=== PATIENT | female | born 1930 | race Caucasian/White ===

== ENCOUNTER 2016-10-26 16:49 | Inpatient (IN) | payer MEDICARE, MEDICAID ==
[2016-10-26] MEDS ORDERED: ACETAMINOPHEN 325 MG SUPP PR ONE (16:59)
[2016-10-26] MEDS ORDERED: ACETAMINOPHEN 650 MG SUPP PR ONE (16:59)
[2016-10-26] MEDS ORDERED: NS 1,000 ML IV ONE (17:00)
[2016-10-26 17:12] LABS: ALLEN'S TEST PASS; BEb -1.7 (+/- 2); TCO2 23.1 MMOL/L (23-27)
[2016-10-26 17:13] LABS: ABG Draw Site Left Radial
[2016-10-26 17:21] LABS: AUTOMATED BASOPHIL 0.4 % (0-2); AUTOMATED EOSINOPHIL 0.2 % (0-5); AUTOMATED LYMPH 9.7 % (17-44); AUTOMATED MONOCYTE 9.7 % (3-10); MPV 9.6 fL (7.4-10.4)
--- NOTE | 2016-10-26 17:22 | EDPRACDOC ---
- General Information Chief Complaint: Dyspnea/Resp distress Stated Complaint: SHOB Time Seen by Provider: 10/26/16 16:56 Information Source: [employer] Mode Of Arrival: Ambulance Home Medications: Home Medications Escitalopram Oxalate [Lexapro] 10 mg PO HS 09/03/14 Methimazole [Tapazole] 5 mg PO HS 09/03/14 Simvastatin [Zocor] 40 mg PO HS 09/03/14 PEG-Electrolytes (Miralax) [Miralax] 17 grams PO DAILY 01/03/15 Losartan Potassium 50 mg PO QAM 03/18/15 Metoprolol Tartrate [Lopressor] 12.5 mg PO BID 04/27/15 Benzonatate 200 mg PO TID PRN 05/23/15 Albuterol Sulfate [Proventil, Ventolin] 2.5 mg NEB Q6H PRN 12/20/15 Aspirin [Ecotrin] 325 mg PO DAILY 12/20/15 B2/Vit A,C & E/Lut/Zeaxanth/Mn [Icaps Tablet] 1 tab PO DAILY 12/20/15 Furosemide [Lasix] 20 mg PO DAILY 12/20/15 Acetaminophen [Mapap] 1,000 mg PO Q6H PRN 12/23/15 Guaifenesin-Dextromethorphan [Robitussin Dm] 10 ml PO Q4H PRN 12/23/15 Mineral Oil/Petrolatum,White [Minerin Creme] 454 gm TP Q2H PRN 08/21/16 Prednisone [Deltasone, Orasone] 50 mg PO DAILY #5 tab 09/11/16 Allergies/Adverse Reactions: Allergies Allergy/AdvReac Type Severity Reaction Status Date / Time No Known Allergies Allergy Verified 09/11/16 09:16 - History of Present Illness Onset: few days HPI: PT HAS SEVERE DEMENTIA AND IS UNABLE TO GIVE ANY HX. PT INITIALLY SAW HER PCP WHO SENT HER HERE. PT HAS HAD SOB, COUGH, AND A FEVER. EMS GAVE PT 1 ALB NEB EN ROUTE. PT HAS BEEN ON LEVAQUIN SINCE 10/20. Shortness of Breath: Moderate Relevant History: Reports: None Cough: Reports: Non-productive Rhinorrhea: Reports: None Ear Symptoms: Reports: None SOB Worsens with: Reports: Exertion SOB Improves with: Reports: Nothing - Treatment Prior to ED Arrival Reported Medications/Treatment [facility] Meds/Treatments Given O2 via Cannula Medications [facility] HE[facility] SPECIAL[facility] (Medication/ albuterol tx en route Dose/Time) EMS Treatment ALS IV Yes ED Past Medical History - Patient Medical History Neurological History: Reports: Cerebrovascular Accident (2007), Dementia (severe ) Cardiac History: Reports: Atrial Fibrillation, Hypertension, Congestive Heart Failure (ECHO 08/2014: EF>55%. Diastolic dysfunction. RV sys pres 38mmHg), Hypercholesterolemia Respiratory History: Reports: Other (DVT) GI/ History: Reports: Urinary Tract Infection Musculoskeletal History: Reports: Arthritis (KNEES AND HANDS) Psychological History: Denies: Depression, Substance Use Disorder. Comment Only : Anxiety (POSSIBLE PER DAUGHTER) Systemic History: Reports: Diabetes, Hyperthyroidism Surgical History: Reports: Other (Pessary, bladder fallen. Dr. Gonzalez is her dust box worker.) - Family Medical History Reports: Cancer (adopted, but cancer is known to run in her biologic family.) - Social Medical History Smoking Status: Never smoker Social History: Denies: Substance Use Disorder ETOH: None Substance Abuse: None Lives In: [facility] EDM Review of Systems - Review of Systems ROS Unobtainable: Yes Review of systems cannot be obtained due to the patient's medical condition - Physical Exam Constitutional: Distress Oriented to: Not Oriented Last recorded Vital Signs: Last Vital Signs Temp 102.6 F H 10/26/16 17:15 Pulse 123 H 10/26/16 17:03 Resp 56 H 10/26/16 17:03 BP 165/108 H 10/26/16 17:03 Pulse Ox 85 L 10/26/16 17:03 Oxygen Pulse Oxygen Saturation 85 O2 Device Room Air Oxygen Flow Rate Fraction of Inspired Oxygen ( FIO2) - HEENT Head: Normal ( normocephalic) Eye Exam: Normal (PERRL, EOMI, Sclera white) Oropharynx: Membranes Dry ENT EAC: Normal TMJ: Normal Nose: No Symptoms Reported (septum midline) Neck: Normal (FROM, trachea at midline) - Respiratory/Cardiovascular Respiratory: Accessory Muscle Use, Rhonchi, Tachypnea, Wheezes Cardiovascular: Tachycardia, Irregular - GI Auscultation: Normal (NABS) Palpation: Normal (Soft,No rebound or guarding, non distended) Tenderness: Non tender Looney's Sign: Negative - Musculoskeletal Back: Normal Extremities: Normal - Integumentary Skin: Hot Lymphatics: Normal - Neurologic Memory Impaired: Unable to Test Motor Function: Normal Cranial Nerve: Unable to Test Mood Description: Anxious ED SOB MDM - Re-evaluation Re-evaluation 1 Re-evaluation Time: 18:05 (IMPROVED) - Results Result Diagrams: 10/26/16 17:03 10/26/16 17:03 Results: Puncture Site Left radial 10/26/16 17:03 pH 7.420 pH UNITS (7.35-7.45) 10/26/16 17:03 pCO2 34.0 mmHg (35-45) L 10/26/16 17:03 pO2 60.0 mmHg (80-100) L 10/26/16 17:03 HCO3 22.1 MMOL/L (22-26) 10/26/16 17:03 Total CO2 23.1 MMOL/L (23-27) 10/26/16 17:03 Base Excess -1.7 (+/- 2) 10/26/16 17:03 FiO2 % 21% 10/26/16 17:03 Specimen Drawn By Roude 10/26/16 17:03 Lab Results 10/26/16 17:03 Puncture Site Left radial pH 7.420 pCO2 34.0 L pO2 60.0 L HCO3 22.1 Total CO2 23.1 Base Excess -1.7 FiO2 % 21% Specimen Drawn By Roude - EKG EKG #1 EKG Time: 17:08 -: Yes EKG interpreted by me Rate: bpm: 129 [place]: Normal Rhythm: Afib Block: None Hypertrophy: None ST: Normal Comparison: 09/11/16 - Diagnostic Imaging Chest Image interpreted by: Radiologist Diagnostic Imaging Comments: Patchy infiltrate right base region. Mild scarring left base. Lungs elsewhere clear. Followup PA and lateral chest radiographs recommended in 3-4 weeks following trial of antibiotic therapy to ensure resolution and exclude underlying malignancy. - Departure Yes I personally saw and evaluated the patient. Disposition: Admit IP To This Hospital Condition: Stable Final Diagnosis: RLL pneumonia, Fever, Acute respiratory failure with hypoxia, Lactic acidosis Education/Counseling Given To: Patient Education/Counseling Given Regarding: Diagnosis, Treatment Decision to Admit Time: 18:10 Decision to admit date: 10/26/16 Decision to admit: from ED - Physician Consulted Hospitalist Provider Called: Radha Chaves
[2016-10-26 17:29] LABS: PARTIAL THROMB. TIME 24.3 SEC (22-35); PT-INR 1.2
[2016-10-26 17:31] LABS: BLOOD UREA NITROGEN 17 MG/DL (7-17); CALCIUM 9.2 MG/DL (8.4-10.2); CALCULATED OSMOLALITY 282 MOs/Kg (270-290); CHLORIDE 103 mEq/L (98-107); GLUCOSE 144 MG/DL (70-99); SODIUM LEVEL 144 mEq/L (137-146); TOTAL PROTEIN 7.6 G/DL (6.3-8.2)
[2016-10-26 17:47] LABS: LEUKOCYTES/URINE NEG (NEGATIVE); NITRITE/URINE NEG (NEGATIVE); URINE OCCULT BLOOD NEG (NEG/TRACE); WBC/URINE 0-2 (0-5)
--- NOTE | 2016-10-26 18:03 | DIRPT ---
CLINICAL DATA: Shortness of Breath ; fever EXAM: PORTABLE CHEST 1 VIEW COMPARISON: September 11, 2016 FINDINGS: There is patchy infiltrate in the right base. There is mild scarring in the left base. Lungs elsewhere clear. Heart is borderline enlarged with pulmonary vascularity within normal limits. Pacemaker lead is attached to the right ventricle. No adenopathy. IMPRESSION: Patchy infiltrate right base region. Mild scarring left base. Lungs elsewhere clear. Followup PA and lateral chest radiographs recommended in 3-4 weeks following trial of antibiotic therapy to ensure resolution and exclude underlying malignancy. Electronically Signed By: Jasvir Kebede III, M.D. On: 10/26/2016 18:00
[2016-10-26] MEDS ORDERED: Levofloxacin 750 mg/150 ml D5W 750 MG/150 ML RTU IV ONE (18:05)
[2016-10-26] MEDS ORDERED: CEFTRIAXONE 1 GM in D5W 100 ML IV ONE (18:08)
[2016-10-26] MEDS ORDERED: AZITHROMYCIN 250 MG TAB PO ONE (18:08)
[2016-10-26] MEDS ORDERED: SODIUM CHLORIDE 0.9% 3 ML FLUSH FLUSH PRN (18:32)
[2016-10-26] MEDS ORDERED: ONDANSETRON HCL 4 MG/2 ML VIAL IV PRN (18:32)
[2016-10-26] MEDS ORDERED: MAGNESIUM HYDROXIDE 30 ML BOTTLE PO PRN (18:32)
[2016-10-26] MEDS ORDERED: ACETAMINOPHEN 650 MG SUPP PR PRN (18:32)
[2016-10-26] MEDS ORDERED: Aluminum;Magnesium;Simethicone 30 ML UDC PO PRN (18:32)
[2016-10-26] MEDS ORDERED: ACETAMINOPHEN 325 MG/TAB TABLET PO PRN (18:32)
--- NOTE | 2016-10-26 18:46 | HISTPHYS ---
- Chief Complaint Patient is unable to provide any history whatsoever and is unaccompanied. - History of Present Illness 86-year-old female seen in Dr. NANCE office last week diagnosed with a acute infectious syndrome and started on levofloxacin. She will complete 7 days of levofloxacin tomorrow. Since that time she has developed diarrhea. She has had worsening respiratory status. She was seen in follow-up with Dr. NANCE is office today and found to be tachycardic, tachypneic and febrile and sent into the emergency department. In the emergency department after having received a nebulizer from EMS her O2 sat was 85%. X-ray revealed severe pneumonia. Patient has symptoms of cough and congestion. Given her physical exam laboratory findings and obvious symptoms the patient will be admitted into the hospital for treatment of severe sepsis due to pneumonia. Please note the patient influenza test was negative in the emergency department Spoke at length the patient's daughter who I personally called. She then reports that her mother is a do not resuscitate. She states that lately she has been unable to feed herself. She cannot dress herself. She uses 0 wheelchair to to get around. She has a pacemaker in place. - Medical History Cardiac History: Reports: Atrial Fibrillation, Hypertension, Congestive Heart Failure (ECHO 08/2014: EF>55%. Diastolic dysfunction. RV sys pres 38mmHg), Hypercholesterolemia, Pacemaker, Other (h/o tachy sree) Respiratory History: Reports: Other (DVT) GI/ History: Reports: Urinary Tract Infection, PMH GI Yes/No Other (CKD stage 3,) Musculoskeletal History: Reports: Arthritis (KNEES AND HANDS) Systemic History: Reports: Diabetes, Hyperthyroidism Neurological History: Reports: Cerebrovascular Accident (2007), Dementia ( severe LAzheimers), Other (h/o IC bleed d/t antioag) Psychological History: Reports: Depression. Denies: Substance Use Disorder. Comment Only: Anxiety (POSSIBLE PER DAUGHTER) - Surgical History Reports: Other (Pessary, bladder fallen. Dr. Gonzalez is her chief technician.) - Medictions/Allergies Allergies No Known Allergies Allergy (Verified 09/11/16 09:16) Current Medication List: Reviewed Home Medications Escitalopram Oxalate [Lexapro] 10 mg PO HS 09/03/14 Methimazole [Tapazole] 5 mg PO HS 09/03/14 Simvastatin [Zocor] 40 mg PO HS 09/03/14 PEG-Electrolytes (Miralax) [Miralax] 17 grams PO DAILY 01/03/15 Losartan Potassium 50 mg PO QAM 03/18/15 Metoprolol Tartrate [Lopressor] 12.5 mg PO BID 04/27/15 Aspirin [Ecotrin] 325 mg PO DAILY 12/20/15 B2/Vit A,C & E/Lut/Zeaxanth/Mn [Icaps Tablet] 1 tab PO DAILY 12/20/15 Furosemide [Lasix] 20 mg PO DAILY 12/20/15 Levofloxacin [Levaquin] 500 mg PO .DAILY X 10D 10/26/16 - Family History Reports: Cancer (adopted, but cancer is known to run in her biologic family.) - Social History Travel Outside of [place] in the Last 3 Months?: No Lives: in Assisted Living Smoking Status: Never smoker Social History: Denies: Alcohol Use, Substance Use Disorder Patient [facility]. She does no longer recognize her daughter but recognizes that she is somebody who she knows. She is no longer able to dress herself and in the past several weeks has been unable to feed herself. She uses a wheelchair to help with her gait. There is a question about hallucinations at night. - Review of Systems Yes Review of systems cannot be obtained due to the patient's medical condition - Physical Exam Vital Signs: Initial Vitals Pulse Rate 129 H 10/26/16 16:59 Respiratory Rate 56 H 10/26/16 16:59 Blood Pressure 187/110 H 10/26/16 16:59 Constitutional: Distress (Moderate). negative: Well nourished, Well appearing Oriented to: Person - HEENT Head: Normal (normocephalic, atraumatic.), Other (No cervical lymphadenopathy. No supraclavicular lymphadenopathy. Neck: No palpable mass, supple , trachea midline.) Eye: Normal (pupils equal, reactive to light, and round; EOMI, Sclera white) Oropharynx: Normal (Pharynx: Moist without exudate,Gums-no swelling, No oropharyngeal lesions or erythema, Mucous membranes are dry.) Nose: Congestion, Discharge Respiratory: Accessory Muscle Use, Diminished, Rales, Rhonchi, Tachypnea Cardiovascular: Tachycardia - GI Auscultation: Normal (normal active sounds) Palpation: Normal (Soft,non distended,nontender. No hepatosplenomegaly.) Tenderness: Non tender (No rebound or guarding) - Musculoskeletal Back: Normal (Non-Tender) Extremities: Normal (Normal tone, DP pulses 2+ bilaterally, No cyanosis or edema bilaterally, FROM bilaterally.) - Integumentary Skin: Normal (Clean, dry, and intact. No rashes. No lesions.) Lymphatics: Normal (No cervical lymphadenopathy. No supraclavicular lymphadenopathy.) - Neurologic Memory Impaired: Short-term, Long-term Motor Function: Unable to Test Cranial Nerve: Unable to Test Cerebellar: Unable to Test Mood Description: Agitated Thought: Rambling Conversation - Focused CV Perfusion Exam Date exam occurred: 10/26/16 Time of Exam: 19:17 Vital Signs: Last Vital Signs Temp 102.6 F H 10/26/16 17:15 Pulse 121 H 10/26/16 17:48 Resp 36 H 10/26/16 17:48 BP 159/87 10/26/16 17:48 Pulse Ox 94 10/26/16 17:48 Respiratory: Chest non-tender, Accessory muscle use, Rales, Rhonchi. negative: No accessory muscle use Cardiovascular/Chest: Tachycardia Peripheral pulses: Full: Radial (R), Radial (L), Dorsalis pedis (R), Dorsalis pedis (L) Skin Color: Normal Skin Turgor: >3 Seconds - Lab Results Laboratory Results - last 24 hr 10/26/16 10/26/16 10/26/16 17:03 17:03 17:03 WBC 10.3 RBC 4.33 Hgb 13.6 Hct 41.3 MCV 95 MCH 31.3 MCHC 32.8 L RDW 15.6 H Plt Count 134 MPV 9.6 Neut % (Auto) 80.0 H Lymph % (Auto) 9.7 L [place] % (Auto) 9.7 Eos % (Auto) 0.2 Baso % (Auto) 0.4 Absolute Neuts (auto) 8.24 H Absolute Lymphs (auto) 0.93 PT 12.6 H INR 1.2 APTT 24.3 Puncture Site pH pCO2 pO2 HCO3 Total CO2 Base Excess FiO2 % Specimen Drawn By Sodium 144 Potassium 4.2 Chloride 103 Carbon Dioxide 24 Anion Gap 21 H BUN 17 Creatinine 1.00 Estimated GFR (MDRD) 52 L Glucose 144 H Calculated Osmolality 282 Lactic Acid Calcium 9.2 Total Bilirubin 0.8 AST 34 ALT 33 Alkaline Phosphatase 88 Troponin I < 0.01 Total Protein 7.6 Albumin 4.5 Urine Color Urine Clarity Urine pH Ur Specific [place] Urine Protein Urine Glucose (UA) Urine Ketones Urine Occult Blood Urine Nitrite Urine Bilirubin Urine Urobilinogen Ur Leukocyte Esterase Urine RBC Urine WBC Ur Epithelial Cells Hyaline Casts Urine Mucus 10/26/16 10/26/16 10/26/16 17:03 17:03 17:25 WBC RBC Hgb Hct MCV MCH MCHC RDW Plt Count MPV Neut % (Auto) Lymph % (Auto) [place] % (Auto) Eos % (Auto) Baso % (Auto) Absolute Neuts (auto) Absolute Lymphs (auto) PT INR APTT Puncture Site Left radial pH 7.420 pCO2 34.0 L pO2 60.0 L HCO3 22.1 Total CO2 23.1 Base Excess -1.7 FiO2 % 21% Specimen Drawn By Roude Sodium Potassium Chloride Carbon Dioxide Anion Gap BUN Creatinine Estimated GFR (MDRD) Glucose Calculated Osmolality Lactic Acid 3.0 H Calcium Total Bilirubin AST ALT Alkaline Phosphatase Troponin I Total Protein Albumin Urine Color Yellow Urine Clarity Clear Urine pH 6.0 Ur Specific [place] 1.010 Urine Protein Neg Urine Glucose (UA) Neg Urine Ketones Neg Urine Occult Blood Neg Urine Nitrite Neg Urine Bilirubin Neg Urine Urobilinogen <2.0 Ur Leukocyte Esterase Neg Urine RBC 5-10 H Urine WBC 0-2 Ur Epithelial Cells Occ Hyaline Casts 2-5 H Urine Mucus Occ - Diagnostic Findings PORTABLE CHEST 1 VIEW COMPARISON: September 11, 2016 FINDINGS: There is patchy infiltrate in the right base. There is mild scarring in the left base. Lungs elsewhere clear. Heart is borderline enlarged with pulmonary vascularity within normal limits. Pacemaker lead is attached to the right ventricle. No adenopathy. IMPRESSION: Patchy infiltrate right base region. Mild scarring left base. Lungs elsewhere clear. Followup PA and lateral chest radiographs recommended in 3-4 weeks following trial of antibiotic therapy to ensure resolution and exclude underlying malignancy. Electronically Signed By: Jasvir Kebede III, M.D. On: 10/26/2016 18:00 - Assessment (1) Severe sepsis A41.9 - SEPSIS, UNSPECIFIED ORGANISM; R65.20 - SEVERE SEPSIS WITHOUT SEPTIC SHOCK Acute Present on Admission: Yes Severe sepsis characterized by fever, tachycardia, tachypnea, as well as source of infection being pneumonia. Patient with elevated lactic acid greater than 3. Patient consists signs and symptoms consistent with severe sepsis she has received treatment in the emergency department with IV fluids will continue IV fluids but given her difficult pulmonary situation will give her fluids at 80 milliliters/hour for 2 L gently and monitor her response to treatment. She is currently not hypotensive. (2) Acute respiratory failure with hypoxia J96.01 - ACUTE RESPIRATORY FAILURE WITH HYPOXIA Acute Present on Admission: Yes Patient to receive oxygen supplementation to keep her O2 sats greater than 92%. Currently she is requiring nasal cannula oxygen. (3) RLL pneumonia J18.1 - LOBAR PNEUMONIA, UNSPECIFIED ORGANISM Acute Present on Admission: Yes Qualifiers: Pneumonia type: aspiration pneumonia Aspiration pneumonia type: unspecified Qualified Code(s): J69.0 - Pneumonitis due to inhalation of food and vomit Patient likely with aspiration pneumonia given her coughing and significant swallowing dysfunction noted in the emergency department. She will be seen by speech therapy for a swallow evaluation in the a.m.. (4) Alzheimer's dementia without behavioral disturbance G30.9 - ALZHEIMER'S DISEASE, UNSPECIFIED; F02.80 - DEMENTIA IN OTH DISEASES CLASSD ELSWHR W/O BEHAVRL DISTURB Acute Present on Admission: Yes Patient with history of else Heimer is dementia as noted above she no longer recognizes her daughter is unable to dress herself and recently has been unable to feed herself. Will continue supportive care. Continue with reorientation as necessary. (5) Fever R50.9 - FEVER, UNSPECIFIED Acute Qualifiers: Fever type: other Qualified Code(s): R50.81 - Fever presenting with conditions classified elsewhere Patient's fever likely due to pneumonia. Will provide antipyretics and treat underlying cause. (6) Lactic acidosis E87.2 - ACIDOSIS Acute Present on Admission: Yes Tissue perfusion at risk will repeat lactic acid. (7) Dementia with psychosis F03.91 - UNSPECIFIED DEMENTIA WITH BEHAVIORAL DISTURBANCE Chronic Patient with a recent history of hallucinations in late September. Likely related to her acute illness. Will monitor closely. (8) Hyperthyroidism E05.90 - THYROTOXICOSIS, UNSP WITHOUT THYROTOXIC CRISIS OR STORM Chronic Continue methimazole as able. (9) Do not resuscitate status Z66 - DO NOT RESUSCITATE Chronic Present on Admission: Yes - Plan Admit, hydrate IV, oxygen supplementation, IV antibiotics and follow temperature curve and exam. Case Care Discussed with: Patient, Family, Nursing Staff Total Time: 85 minutes Critical Care: Yes Couseling Time (>50% in counseling/coordination): No
[2016-10-26 18:52] LABS: FREE T3 3.26 pg/mL (2.77-5.27); FREE T4 0.88 ng/dL (0.78-2.19)
[2016-10-26 19:06] LABS: hTSH 2.39 uIU/mL (0.5-4.67)
[2016-10-26] MEDS: NS/KCl 20 mEq 1,000 ML IV SCH (19:51)
[2016-10-26] MEDS: ENOXAPARIN 40 MG/0.4 ML PFS SQ SCH (21:54)
[2016-10-26] MEDS: ESCITALOPRAM OXALATE 10 MG TAB PO SCH ×2 (21:55→22:01)
[2016-10-26] MEDS: METOPROLOL TARTRATE 25 MG TAB PO SCH ×2 (21:56→22:00)
[2016-10-26] MEDS: SIMVASTATIN 40 MG TAB PO SCH ×2 (21:58→22:01)
[2016-10-26] MEDS: METHIMAZOLE 5 MG TAB PO SCH ×2 (21:58→22:01)
[2016-10-26] MEDS ORDERED: Vaccine Screening Complete SCH (23:00)
[2016-10-27 01:27] LABS: AUTOMATED BASOPHIL 0.2 % (0-2); AUTOMATED LYMPH 6.7 % (17-44); AUTOMATED MONOCYTE 11.5 % (3-10); AUTOMATED NEUTROPHIL 81.6 % (45-76); MPV 9.5 fL (7.4-10.4)
[2016-10-27] MEDS: SODIUM CHLORIDE 0.9% 3 ML FLUSH FLUSH SCH ×3 (05:58→23:01)
[2016-10-27] MEDS: NS/KCl 20 mEq 1,000 ML IV SCH ×3 (05:59→20:37)
[2016-10-27] MEDS ORDERED: FLU VACCINE (Afluria) 0.5 ML DOSE IM ONE (08:00)
[2016-10-27] MEDS ORDERED: PNEUMOCOCCAL 0.5 ML VIAL IM ONE (08:00)
[2016-10-27 08:12] LABS: ALLEN'S TEST PASS
[2016-10-27 08:13] LABS: ABG Draw Site Left Radial; BEb 2.3 (+/- 2); TCO2 27.7 MMOL/L (23-27)
[2016-10-27] MEDS ORDERED: [UNRECOGNIZED DRUG - OTHER] PO SCH (09:00)
[2016-10-27] MEDS: FUROSEMIDE 20 MG TAB PO SCH (11:38)
[2016-10-27] MEDS: METOPROLOL TARTRATE 25 MG TAB PO SCH ×2 (11:38→20:35)
[2016-10-27] MEDS: VITAMINS, MULTIPLE CAP PO SCH (11:38)
[2016-10-27] MEDS: PEG-ELECTROLYTE 17 GM PACK PO SCH (11:39)
[2016-10-27] MEDS: Aspirin (Orange Enteric Coated) 325 mg tab PO SCH (11:39)
[2016-10-27] MEDS: LOSARTAN POTASSIUM 50 MG TAB PO SCH (11:39)
--- NOTE | 2016-10-27 15:11 | GENMEDPROG ---
Chief Complaint: sepsis, resp failure, pneumonia, TME, CHF, hypokalemia, dementia Currently: Reports: Cough, Wheezing, JUAREZ, SOB, Tobacco Use/Hx, Nausea and Vomiting, Abdominal Pain, Fever/Chills, Lisandra PT/OT, Ambulating DVT Prophylaxis: Yes - Physical Examination Vital Signs and I&O: Last Vital Signs Temp 98.1 F 10/27/16 12:00 Pulse 84 10/27/16 12:00 Resp 20 10/27/16 12:00 BP 140/86 10/27/16 12:00 Pulse Ox 87 L 10/27/16 12:00 Oxygen Pulse Oxygen Saturation 87 O2 Device Nasal Cannula Oxygen Flow Rate 2 Fraction of Inspired Oxygen ( 2 FIO2) Intake & Output 10/24/16 10/25/16 10/26/16 10/27/16 23:59 23:59 23:59 23:59 Intake Total 1250 913 Balance 1250 913 Patient's weight 66.723 kg 64.042 kg General: Alert, Oriented x3, Cooperative, No acute distress HEENT: PERRLA, EOMI, Anicteric Sclera, Mucous membr. moist/pink, Pallor Neck: Non-tender, Full range of motion, Normal Trachea alignment, Normal inspection, No Masses palpable, No Thyromegaly palpable Lymphatics: Normal (No cervical lymphadenopathy. No supraclavicular lymphadenopathy.), Cervical Adenopathy Respiratory: Accessory Muscle Use, Diminished, Rales, Rhonchi, Tachypnea Cardiovascular: Regular rate and rhythm, Normal S1, No Gallops,Rubs/Murmurs, Normal S2 GI: Normal bowel sounds, Soft, Non tender, No hepatospenomegaly Extremities/Musculoskeletal: Normal pulses, DJD, FROM, Motor 5/5 throughout. negative: Edema, Clubbing, Cyanosis Skin: Warm,Dry and Intact, No rashes, No breakdown, No significant lesion Neurological: Normal speech, Strength at 5/5 X4 ext, Normal tone, Cranial nerves 3-12 NL, Reflexes 2+ Psych/Mental Status: Appropriate, Normal Affect, Cooperative Lab/DI/Studies Reviewed: Laboratory Tests 10/27/16 10/27/16 10/27/16 01:05 01:05 08:05 WBC 11.6 H Hgb 11.6 L D Hct 35.2 L Plt Count 106 L pH 7.440 pCO2 39.0 pO2 96.0 HCO3 26.5 H Total CO2 27.7 H Base Excess 2.3 H FiO2 % 2lpm nc Troponin I 0.02 - Assessment (1) Severe sepsis Acute A41.9 - SEPSIS, UNSPECIFIED ORGANISM; R65.20 - SEVERE SEPSIS WITHOUT SEPTIC SHOCK Comment/Plan: Severe sepsis characterized by fever, tachycardia, tachypnea, as well as source of infection being pneumonia. Patient with elevated lactic acid greater than 3. Patient consists signs and symptoms consistent with severe sepsis she has received treatment in the emergency department with IV fluids will continue IV fluids but given her difficult pulmonary situation will give her fluids at 80 milliliters/hour for 2 L gently and monitor her response to treatment. She is currently not hypotensive. (2) Acute respiratory failure with hypoxia Acute J96.01 - ACUTE RESPIRATORY FAILURE WITH HYPOXIA Comment/Plan: Patient to receive oxygen supplementation to keep her O2 sats greater than 92%. Currently she is requiring nasal cannula oxygen. (3) RLL pneumonia Acute J18.1 - LOBAR PNEUMONIA, UNSPECIFIED ORGANISM Qualifiers: Pneumonia type: aspiration pneumonia Aspiration pneumonia type: unspecified Qualified Code(s): J69.0 - Pneumonitis due to inhalation of food and vomit Comment/Plan: Patient likely with aspiration pneumonia given her coughing and significant swallowing dysfunction noted in the emergency department. She will be seen by speech therapy for a swallow evaluation in the a.m.. (4) Lactic acidosis Acute E87.2 - ACIDOSIS Comment/Plan: Tissue perfusion at risk will repeat lactic acid. (5) Atrial fibrillation with RVR Acute I48.91 - UNSPECIFIED ATRIAL FIBRILLATION Comment/Plan: She has sick sinus syndrome with symptomatic bradycardia with syncope prolonged junctional rhythm on low-dose beta-filiberto and subsequent rapid atrial fibrillation drug withdrawal. She is managed with IV Cardizem low-dose she has converted the family has matched they have agreed to have a permanent pacemaker put in as a side from her dementia she otherwise has a good quality of life and no life- threatening illness. Signed consent yesterday the some will go to [place] today and they agreed to suspend her DNR during pacemaker insertion after which go back on a beta filiberto Lopressor 25 mg b.i.d.. She has not been anticoagulated because of concerns of fall and I can address this in the office electively afterwards I think of we made a decision to pacer its pressor I would put her on anticoagulant therapy of there is no falls when seen in follow up. (6) Thrombocytopenia Acute D69.6 - THROMBOCYTOPENIA, UNSPECIFIED Comment/Plan: Platelet count stable continue to monitor. (7) Diastolic CHF, chronic Chronic I50.32 - CHRONIC DIASTOLIC (CONGESTIVE) HEART FAILURE Comment/Plan: The patient with a long history of chronic systolic CONGESTIVE HEART FAILURE currently well compensated will continue to monitor. Patient now has pacemaker. (8) Hypertension Chronic I10 - ESSENTIAL (PRIMARY) HYPERTENSION Qualifiers: Hypertension type: essential hypertension Qualified Code(s): I10 - Essential (primary) hypertension Comment/Plan: Continue blood pressure medications; blood pressure is currently stable. (9) Hyperthyroidism Chronic E05.90 - THYROTOXICOSIS, UNSP WITHOUT THYROTOXIC CRISIS OR STORM Comment/Plan: Continue methimazole as able.
[2016-10-27] MEDS: CEFTRIAXONE 1 GM in D5W 100 ML IV SCH (16:52)
[2016-10-27] MEDS: ENOXAPARIN 40 MG/0.4 ML PFS SQ SCH (16:53)
[2016-10-27] MEDS: AZITHROMYCIN 500 MG in D5W 250 ML IV SCH (18:28)
[2016-10-27] MEDS: METHIMAZOLE 5 MG TAB PO SCH (20:35)
[2016-10-27] MEDS: SIMVASTATIN 40 MG TAB PO SCH (20:35)
[2016-10-27] MEDS: ESCITALOPRAM OXALATE 10 MG TAB PO SCH (20:35)
[2016-10-28] MEDS: NS/KCl 20 mEq 1,000 ML IV SCH ×2 (05:11→08:56)
[2016-10-28] MEDS: LOSARTAN POTASSIUM 50 MG TAB PO SCH (07:30)
[2016-10-28] MEDS: BENZONATATE 100 MG PERLES PO PRN (07:30)
[2016-10-28] MEDS: Aspirin (Orange Enteric Coated) 325 mg tab PO SCH (07:31)
[2016-10-28] MEDS: FUROSEMIDE 20 MG TAB PO SCH (07:31)
[2016-10-28] MEDS: METOPROLOL TARTRATE 25 MG TAB PO SCH ×2 (07:32→20:29)
[2016-10-28] MEDS: PEG-ELECTROLYTE 17 GM PACK PO SCH (08:56)
[2016-10-28] MEDS ORDERED: VARIBAR THIN 40% BARIUM 250 ML ONE (11:08)
[2016-10-28] MEDS ORDERED: VARIBAR NECTAR 40% BARIUM 240 ML ONE (11:08)
[2016-10-28] MEDS: VITAMINS, MULTIPLE CAP PO SCH (11:47)
--- NOTE | 2016-10-28 15:36 | GENMEDPROG ---
Chief Complaint: Mild sepsis respiratory failure right base pneumonia Subjective Note: Patient still has a cough. She denies any chest pain any lower extremity edema Currently: Reports: Cough (Nonproductive), Wheezing, JUAREZ, SOB, Tobacco Use/Hx DVT Prophylaxis: Yes - Physical Examination Vital Signs and I&O: Last Vital Signs Temp 98.4 F 10/28/16 12:13 Pulse 95 10/28/16 12:13 Resp 18 10/28/16 12:13 BP 141/97 10/28/16 12:13 Pulse Ox 99 10/28/16 12:13 Oxygen Pulse Oxygen Saturation 99 O2 Device Nasal Cannula Oxygen Flow Rate 2 Fraction of Inspired Oxygen ( 2 FIO2) Intake & Output 10/25/16 10/26/16 10/27/16 10/28/16 23:59 23:59 23:59 23:59 Intake Total 1250 1935 1174 Balance 1250 1935 1174 Patient's weight 66.723 kg 64.042 kg 64.365 kg General: Alert, Cooperative, No acute distress HEENT: Anicteric Sclera, Mucous membr. moist/pink, Pallor Neck: Non-tender, Normal Trachea alignment, Normal inspection Lymphatics: Normal (No cervical lymphadenopathy. No supraclavicular lymphadenopathy.) Respiratory: Accessory Muscle Use, Diminished, Rales, Rhonchi Cardiovascular: Regular rate and rhythm, Normal S1, No Gallops,Rubs/Murmurs, Normal S2. negative: LE Edema GI: Normal bowel sounds, Soft, Non tender Extremities/Musculoskeletal: Normal pulses, DJD. negative: Edema, Clubbing, Cyanosis Skin: Warm,Dry and Intact, No rashes Neurological: Normal speech, Normal tone Psych/Mental Status: Normal Affect, Cooperative, Confused (Pleasantly confused) Lab/DI/Studies Reviewed: 10/27/16 01:05 10/26/16 17:03 - Assessment (1) Severe sepsis Acute A41.9 - SEPSIS, UNSPECIFIED ORGANISM; R65.20 - SEVERE SEPSIS WITHOUT SEPTIC SHOCK Comment/Plan: Tachypnea has improved. Still need to cautiously manage fluid status. (2) Acute respiratory failure with hypoxia Acute J96.01 - ACUTE RESPIRATORY FAILURE WITH HYPOXIA Comment/Plan: Continue oxygen (3) RLL pneumonia Acute J18.1 - LOBAR PNEUMONIA, UNSPECIFIED ORGANISM Qualifiers: Pneumonia type: aspiration pneumonia Aspiration pneumonia type: unspecified Qualified Code(s): J69.0 - Pneumonitis due to inhalation of food and vomit Comment/Plan: Is being seen by speech therapy. She is on pureed solids and nectar thick liquids. Aspiration precautions need to continue. (4) Alzheimer's dementia without behavioral disturbance Acute G30.9 - ALZHEIMER'S DISEASE, UNSPECIFIED; F02.80 - DEMENTIA IN OTH DISEASES CLASSD ELSWHR W/O BEHAVRL DISTURB Qualifiers: Alzheimer's disease onset: late-onset Qualified Code(s): G30.1 - Alzheimer' s disease with late onset; F02.80 - Dementia in other diseases classified elsewhere without behavioral disturbance Comment/Plan: Continue supportive care. Anticipate discharge back to [facility] (5) Atrial fibrillation with RVR Acute I48.91 - UNSPECIFIED ATRIAL FIBRILLATION Comment/Plan: Currently on outpatient medications. She has a pacemaker. - Plan Continue IV antibiotics Case Care Discussed with: Patient, Nursing Staff Total Time: 35 minutes Critical Care: No Code: 68647 (12+)
[2016-10-28] MEDS: CEFTRIAXONE 1 GM in D5W 100 ML IV SCH (16:37)
[2016-10-28] MEDS: ENOXAPARIN 40 MG/0.4 ML PFS SQ SCH (18:31)
[2016-10-28] MEDS: SODIUM CHLORIDE 0.9% 3 ML FLUSH FLUSH SCH (18:31)
[2016-10-28] MEDS: AZITHROMYCIN 500 MG in D5W 250 ML IV SCH (18:31)
[2016-10-28] MEDS: TUSSIONEX 5 ML ORAL SYRINGE PO PRN (18:47)
[2016-10-28] MEDS ORDERED: Albuterol/Ipratropium Neb 3 ML NEB NEB PRN (18:59)
[2016-10-28] MEDS: Albuterol/Ipratropium Neb 3 ML NEB NEB SCH (19:12)
[2016-10-28] MEDS: METHIMAZOLE 5 MG TAB PO SCH (20:28)
[2016-10-28] MEDS: ESCITALOPRAM OXALATE 10 MG TAB PO SCH (20:28)
[2016-10-28] MEDS: SIMVASTATIN 40 MG TAB PO SCH (20:29)
[2016-10-29] MEDS: Albuterol/Ipratropium Neb 3 ML NEB NEB SCH ×4 (01:36→20:11)
[2016-10-29] MEDS: NS/KCl 20 mEq 1,000 ML IV SCH ×3 (01:48→16:40)
[2016-10-29] MEDS: SODIUM CHLORIDE 0.9% 3 ML FLUSH FLUSH SCH ×2 (05:15→16:40)
[2016-10-29] MEDS: BENZONATATE 100 MG PERLES PO PRN (06:03)
[2016-10-29] MEDS: LOSARTAN POTASSIUM 50 MG TAB PO SCH (08:23)
[2016-10-29] MEDS: VITAMINS, MULTIPLE CAP PO SCH (08:23)
[2016-10-29] MEDS: Aspirin (Orange Enteric Coated) 325 mg tab PO SCH (08:23)
[2016-10-29] MEDS: METOPROLOL TARTRATE 25 MG TAB PO SCH ×2 (08:23→20:37)
[2016-10-29] MEDS: ENSURE PUDDING CHOCOLATE 5 OZ PO SCH ×2 (08:24→13:46)
[2016-10-29] MEDS: PEG-ELECTROLYTE 17 GM PACK PO SCH (08:24)
[2016-10-29] MEDS: FUROSEMIDE 20 MG TAB PO SCH (08:24)
--- NOTE | 2016-10-29 12:19 | GENMEDPROG ---
Chief Complaint: Sepsis right basilar pneumonia Subjective Note: Patient is too somnolent today to get much review of systems. She does talk briefly but does not answer specific questions Current Medication List: Reviewed Currently: Reports: Cough (Did have coughing spasms yesterday), Tobacco Use/Hx, Other (Has not eaten breakfast). Denies: Nausea and Vomiting, Fever/Chills DVT Prophylaxis: Yes - Physical Examination Vital Signs and I&O: Last Vital Signs Temp 98.2 F 10/29/16 11:54 Pulse 105 10/29/16 11:54 Resp 20 10/29/16 11:54 BP 162/92 10/29/16 11:54 Pulse Ox 96 10/29/16 11:54 Oxygen Pulse Oxygen Saturation 96 O2 Device Nasal Cannula Oxygen Flow Rate 2 Fraction of Inspired Oxygen ( 2 FIO2) Intake & Output 10/26/16 10/27/16 10/28/16 10/29/16 23:59 23:59 23:59 23:59 Intake Total 1250 1934 2098 108 Balance 1249 1934 2098 108 Patient's weight 66.723 kg 64.042 kg 64.365 kg 64.892 kg General: No acute distress, Other (Sleeping and arouses very slowly) HEENT: Anicteric Sclera, Mucous membr. moist/pink, Pallor Neck: Non-tender, Normal Trachea alignment, Normal inspection Lymphatics: Normal (No cervical lymphadenopathy. No supraclavicular lymphadenopathy.) Respiratory: Diminished (Faint congestion heard) Cardiovascular: Regular rate and rhythm, Normal S1, No Gallops,Rubs/Murmurs, Normal S2. negative: LE Edema GI: Normal bowel sounds, Soft, Non tender Extremities/Musculoskeletal: Normal pulses, DJD. negative: Edema, Clubbing, Cyanosis Skin: Warm,Dry and Intact Neurological: Somnolent Psych/Mental Status: Confused (Is confused but not combative when she wakes up.) Lab/DI/Studies Reviewed: Intake & Output 10/26/16 10/27/16 10/28/16 10/29/16 23:59 23:59 23:59 23:59 Intake Total 1251934 108 Balance 1249 1934 2098 1084 Patient's weight 66.723 kg 64.042 kg 64.365 kg 64.892 kg 10/27/16 01:05 10/26/16 17:03 - Assessment (1) Severe sepsis Acute A41.9 - SEPSIS, UNSPECIFIED ORGANISM; R65.20 - SEVERE SEPSIS WITHOUT SEPTIC SHOCK Comment/Plan: She is now afebrile. Tachycardia is resolved. Tachypnea is resolved. She she is a little more somnolent today and needs to be monitored closely. (2) Acute respiratory failure with hypoxia Acute J96.01 - ACUTE RESPIRATORY FAILURE WITH HYPOXIA Comment/Plan: Continue oxygen (3) RLL pneumonia Acute J18.1 - LOBAR PNEUMONIA, UNSPECIFIED ORGANISM Qualifiers: Pneumonia type: aspiration pneumonia Aspiration pneumonia type: unspecified Qualified Code(s): J69.0 - Pneumonitis due to inhalation of food and vomit Comment/Plan: Is being seen by speech therapy. She is on pureed solids and nectar thick liquids. Aspiration precautions need to continue. (4) Alzheimer's dementia without behavioral disturbance Acute G30.9 - ALZHEIMER'S DISEASE, UNSPECIFIED; F02.80 - DEMENTIA IN OTH DISEASES CLASSD ELSWHR W/O BEHAVRL DISTURB Qualifiers: Alzheimer's disease onset: late-onset Qualified Code(s): G30.1 - Alzheimer' s disease with late onset; F02.80 - Dementia in other diseases classified elsewhere without behavioral disturbance Comment/Plan: Continue supportive care. Anticipate discharge back to [facility]. Will ask Physical therapy to see her prior to any evaluation about going back to [facility] (5) Atrial fibrillation with RVR Acute I48.91 - UNSPECIFIED ATRIAL FIBRILLATION Comment/Plan: Currently on outpatient medications. She has a pacemaker. Case Care Discussed with: Nursing Staff Total Time: 35 minutes Code: [id number] (12+)
[2016-10-29 13:14] LABS: MPV 9.4 fL (7.4-10.4)
[2016-10-29 13:25] LABS: BLOOD UREA NITROGEN 15 MG/DL (7-17); CALCIUM 8.8 MG/DL (8.4-10.2); CALCULATED OSMOLALITY 275 MOs/Kg (270-290); CHLORIDE 108 mEq/L (98-107); GLUCOSE 86 MG/DL (70-99); SODIUM LEVEL 143 mEq/L (137-146)
[2016-10-29] MEDS: CEFTRIAXONE 1 GM in D5W 100 ML IV SCH (16:37)
[2016-10-29] MEDS: ENOXAPARIN 40 MG/0.4 ML PFS SQ SCH (16:39)
[2016-10-29] MEDS: AZITHROMYCIN 500 MG in D5W 250 ML IV SCH (17:41)
[2016-10-29] MEDS: METHIMAZOLE 5 MG TAB PO SCH (20:37)
[2016-10-29] MEDS: SIMVASTATIN 40 MG TAB PO SCH (20:37)
[2016-10-29] MEDS: ESCITALOPRAM OXALATE 10 MG TAB PO SCH (20:37)
[2016-10-30] MEDS: Albuterol/Ipratropium Neb 3 ML NEB NEB SCH ×4 (02:14→19:54)
[2016-10-30] MEDS: NS/KCl 20 mEq 1,000 ML IV SCH ×3 (05:29→22:04)
[2016-10-30] MEDS: SODIUM CHLORIDE 0.9% 3 ML FLUSH FLUSH SCH ×2 (05:29→16:39)
[2016-10-30] MEDS: FUROSEMIDE 20 MG TAB PO SCH (07:37)
[2016-10-30] MEDS: PEG-ELECTROLYTE 17 GM PACK PO SCH (07:37)
[2016-10-30] MEDS: METOPROLOL TARTRATE 25 MG TAB PO SCH ×2 (07:38→22:05)
[2016-10-30] MEDS: Aspirin (Orange Enteric Coated) 325 mg tab PO SCH (07:38)
[2016-10-30] MEDS: VITAMINS, MULTIPLE CAP PO SCH (07:38)
[2016-10-30] MEDS: ENSURE PUDDING CHOCOLATE 5 OZ PO SCH ×2 (07:38→11:15)
[2016-10-30] MEDS: LOSARTAN POTASSIUM 50 MG TAB PO SCH (07:38)
--- NOTE | 2016-10-30 09:24 | GENMEDPROG ---
Subjective Note: She is sleeping and opened eyes but did not answer any questions. She was smiling. Has not seen PT since 10/29 and she refused. Nursing states she is sleeping most of day. Current Medication List: Reviewed Currently: Reports: Cough (Still with spasms.), Tobacco Use/Hx. Denies: Nausea and Vomiting, Fever/Chills DVT Prophylaxis: Yes - Physical Examination Vital Signs and I&O: Last Vital Signs Temp 98.1 F 10/30/16 07:41 Pulse 86 10/30/16 08:56 Resp 20 10/30/16 07:41 BP 169/99 10/30/16 07:41 Pulse Ox 98 10/30/16 08:14 Oxygen Pulse Oxygen Saturation 98 O2 Device Nasal Cannula Oxygen Flow Rate 2 Fraction of Inspired Oxygen ( 2 FIO2) Intake & Output 10/27/16 10/28/16 10/29/16 10/30/16 23:59 23:59 23:59 23:59 Intake Total 19346 1355 Balance 1934 2098 2225 1355 Patient's weight 64.042 kg 64.365 kg 64.892 kg General: No acute distress, Other (Sleeping and arouses very slowly) HEENT: Anicteric Sclera, Mucous membr. moist/pink, Pallor Neck: Non-tender, Normal inspection Lymphatics: negative: Cervical Adenopathy, Supraclavicular Adenopathy Respiratory: Diminished, Excursion (decreased.) Cardiovascular: Normal S1, No Gallops,Rubs/Murmurs, Normal S2, Irregular. negative: LE Edema GI: Normal bowel sounds, Soft, Non tender Extremities/Musculoskeletal: Normal pulses. negative: Edema, Clubbing, Cyanosis Skin: Warm,Dry and Intact Neurological: Lethargy. negative: Normal speech (did not speak) Psych/Mental Status: Confused (Is confused but not combative when she wakes up.) - Assessment (1) Severe sepsis Resolved A41.9 - SEPSIS, UNSPECIFIED ORGANISM; R65.20 - SEVERE SEPSIS WITHOUT SEPTIC SHOCK Comment/Plan: still sleeping most of day. I feel that sepsis has resolved but she is not at baseline.She had been living at [facility]. (2) Acute respiratory failure with hypoxia Acute J96.01 - ACUTE RESPIRATORY FAILURE WITH HYPOXIA Comment/Plan: has not walked at all. Is trnsferred to recliner for part of each day. May be able to wean. (3) RLL pneumonia Acute J18.1 - LOBAR PNEUMONIA, UNSPECIFIED ORGANISM Qualifiers: Pneumonia type: aspiration pneumonia Aspiration pneumonia type: unspecified Qualified Code(s): J69.0 - Pneumonitis due to inhalation of food and vomit Comment/Plan: Aspiration precautions and pureed diet with thickened liquids. (4) Alzheimer's dementia without behavioral disturbance Acute G30.9 - ALZHEIMER'S DISEASE, UNSPECIFIED; F02.80 - DEMENTIA IN OTH DISEASES CLASSD ELSWHR W/O BEHAVRL DISTURB Qualifiers: Alzheimer's disease onset: late-onset Qualified Code(s): G30.1 - Alzheimer' s disease with late onset; F02.80 - Dementia in other diseases classified elsewhere without behavioral disturbance Comment/Plan: Needs to be ambulatory to return to [facility]. PT attempting to evaluate. (5) Atrial fibrillation with RVR Acute I48.91 - UNSPECIFIED ATRIAL FIBRILLATION Comment/Plan: Currently on outpatient medications. She has a pacemaker. Case Care Discussed with: Patient, Nursing Staff Total Time: 35 min Critical Care: No Couseling Time (>50% in counseling/coordination): No Code: 75881 (12+)
[2016-10-30] MEDS: CEFTRIAXONE 1 GM in D5W 100 ML IV SCH (16:38)
[2016-10-30] MEDS: ENOXAPARIN 40 MG/0.4 ML PFS SQ SCH (16:42)
[2016-10-30] MEDS: TUSSIONEX 5 ML ORAL SYRINGE PO PRN (16:45)
[2016-10-30] MEDS: AZITHROMYCIN 500 MG in D5W 250 ML IV SCH (17:37)
[2016-10-30] MEDS: SIMVASTATIN 40 MG TAB PO SCH (22:05)
[2016-10-30] MEDS: METHIMAZOLE 5 MG TAB PO SCH (22:05)
[2016-10-30] MEDS: ESCITALOPRAM OXALATE 10 MG TAB PO SCH (22:05)
[2016-10-31] MEDS: Albuterol/Ipratropium Neb 3 ML NEB NEB SCH ×4 (01:29→20:21)
[2016-10-31 04:52] VITALS: BMI 24.7
[2016-10-31] MEDS: SODIUM CHLORIDE 0.9% 3 ML FLUSH FLUSH SCH ×2 (05:50→17:19)
[2016-10-31] MEDS: NS/KCl 20 mEq 1,000 ML IV SCH ×3 (05:50→23:56)
[2016-10-31] MEDS: LOSARTAN POTASSIUM 50 MG TAB PO SCH (08:04)
[2016-10-31] MEDS: Aspirin (Orange Enteric Coated) 325 mg tab PO SCH (08:04)
[2016-10-31] MEDS: FUROSEMIDE 20 MG TAB PO SCH (08:05)
[2016-10-31] MEDS: METOPROLOL TARTRATE 25 MG TAB PO SCH ×2 (08:05→21:00)
[2016-10-31] MEDS: ENSURE PUDDING CHOCOLATE 5 OZ PO SCH ×2 (13:53→17:21)
[2016-10-31] MEDS: VITAMINS, MULTIPLE CAP PO SCH (13:53)
[2016-10-31] MEDS: PEG-ELECTROLYTE 17 GM PACK PO SCH (13:53)
[2016-10-31] MEDS: CEFTRIAXONE 1 GM in D5W 100 ML IV SCH (17:12)
[2016-10-31] MEDS: ENOXAPARIN 40 MG/0.4 ML PFS SQ SCH (17:19)
--- NOTE | 2016-10-31 17:33 | GENMEDPROG ---
Subjective Note: Patient sitting in chair remains pleasantly demented and very confused. She is oriented to name only. When she got up to walk a few steps her sats dropped to 87% today. That was on room air. She is currently requiring 1 L of oxygen. She is scheduled to discharge to a skilled facility when stable. Notes Reviewed: Yes Events from last night noted and discussed with Clinical Staff Current Medication List: Reviewed Currently: Reports: Cough (Did have coughing spasms yesterday), Tobacco Use/Hx, Other (Has not eaten breakfast). Denies: Nausea and Vomiting, Fever/Chills DVT Prophylaxis: Yes - Physical Examination Vital Signs and I&O: Last Vital Signs Temp 98.1 F 10/31/16 16:00 Pulse 101 10/31/16 16:00 Resp 18 10/31/16 16:00 BP 153/98 10/31/16 16:00 Pulse Ox 96 10/31/16 16:00 Oxygen Pulse Oxygen Saturation 96 O2 Device Nasal Cannula Oxygen Flow Rate 2 Fraction of Inspired Oxygen ( 2 FIO2) Intake & Output 10/28/16 10/29/16 10/30/16 10/31/16 23:59 23:59 23:59 23:59 Intake Total 2099 2226 1595 1432 Output Total 450 Balance 2099 2226 1595 982 Patient's weight 64.365 kg 64.892 kg 65.572 kg General: No acute distress, Other (Sleeping and arouses very slowly) HEENT: Anicteric Sclera, Mucous membr. moist/pink, Pallor Neck: Non-tender, Normal Trachea alignment, Normal inspection Lymphatics: Normal (No cervical lymphadenopathy. No supraclavicular lymphadenopathy.) Respiratory: Diminished (Faint congestion heard) Cardiovascular: Regular rate and rhythm, Normal S1, No Gallops,Rubs/Murmurs, Normal S2. negative: LE Edema GI: Normal bowel sounds, Soft, Non tender Extremities/Musculoskeletal: Normal pulses, DJD. negative: Edema, Clubbing, Cyanosis Skin: Warm,Dry and Intact Neurological: Somnolent Psych/Mental Status: Confused (Is confused but not combative when she wakes up.) - Assessment (1) Acute respiratory failure with hypoxia Acute J96.01 - ACUTE RESPIRATORY FAILURE WITH HYPOXIA Comment/Plan: Continue oxygen. Patient has exertional hypoxia. Will recheck her oxygenation in a.m. on room air. (2) RLL pneumonia Acute J18.1 - LOBAR PNEUMONIA, UNSPECIFIED ORGANISM Qualifiers: Pneumonia type: aspiration pneumonia Aspiration pneumonia type: unspecified Qualified Code(s): J69.0 - Pneumonitis due to inhalation of food and vomit Comment/Plan: Is being seen by speech therapy. She is on pureed solids and nectar thick liquids. Aspiration precautions need to continue. (3) Alzheimer's dementia without behavioral disturbance Acute G30.9 - ALZHEIMER'S DISEASE, UNSPECIFIED; F02.80 - DEMENTIA IN OTH DISEASES CLASSD ELSWHR W/O BEHAVRL DISTURB Qualifiers: Alzheimer's disease onset: late-onset Qualified Code(s): G30.1 - Alzheimer' s disease with late onset; F02.80 - Dementia in other diseases classified elsewhere without behavioral disturbance Comment/Plan: Continue present plan however patient not to be discharge back to [facility] at this point she will go to a skilled facility prior to returning to [facility]. 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 Likely related to her acute illness. Will monitor closely. (5) Hyperthyroidism Chronic E05.90 - THYROTOXICOSIS, UNSP WITHOUT THYROTOXIC CRISIS OR STORM Comment/Plan: Continue methimazole as able. (6) Do not resuscitate status Chronic Z66 - DO NOT RESUSCITATE (7) Severe sepsis Resolved A41.9 - SEPSIS, UNSPECIFIED ORGANISM; R65.20 - SEVERE SEPSIS WITHOUT SEPTIC SHOCK Comment/Plan: She is now afebrile. Tachycardia is resolved. Tachypnea is resolved. She she is a little more somnolent today and needs to be monitored closely. (8) Fever Resolved R50.9 - FEVER, UNSPECIFIED Qualifiers: Fever type: other Qualified Code(s): R50.81 - Fever presenting with conditions classified elsewhere Comment/Plan: Patient's fever likely due to pneumonia. Will provide antipyretics and treat underlying cause. (9) Lactic acidosis Resolved E87.2 - ACIDOSIS Comment/Plan: Tissue perfusion at risk will repeat lactic acid. - Plan Continue to monitor closely. Will check ambulating O2 sats in a.m.. Possible discharge tomorrow if sats acceptable. Case Care Discussed with: Patient, Nursing Staff Education/Counseling Given To: Patient Education/Counseling Given Regarding: Diagnosis, Treatment Total Time: 45 minutes Critical Care: No Couseling Time (>50% in counseling/coordination): No
[2016-10-31] MEDS: ESCITALOPRAM OXALATE 10 MG TAB PO SCH (21:03)
[2016-10-31] MEDS: METHIMAZOLE 5 MG TAB PO SCH (21:03)
[2016-10-31] MEDS: SIMVASTATIN 40 MG TAB PO SCH (21:03)
[2016-10-31] MEDS: TUSSIONEX 5 ML ORAL SYRINGE PO PRN (23:56)
[2016-11-01] MEDS: Albuterol/Ipratropium Neb 3 ML NEB NEB SCH ×3 (02:27→13:57)
[2016-11-01] MEDS: SODIUM CHLORIDE 0.9% 3 ML FLUSH FLUSH SCH (05:28)
[2016-11-01] MEDS: NS/KCl 20 mEq 1,000 ML IV SCH (05:28)
[2016-11-01] MEDS: Aspirin (Orange Enteric Coated) 325 mg tab PO SCH (07:47)
[2016-11-01] MEDS: LOSARTAN POTASSIUM 50 MG TAB PO SCH (07:47)
[2016-11-01] MEDS: METOPROLOL TARTRATE 25 MG TAB PO SCH (07:47)
[2016-11-01] MEDS: FUROSEMIDE 20 MG TAB PO SCH (07:47)
[2016-11-01] MEDS: PEG-ELECTROLYTE 17 GM PACK PO SCH (07:48)
[2016-11-01 10:40] VITALS: TEMP 98.2
[2016-11-01] MEDS: ENSURE PUDDING CHOCOLATE 5 OZ PO SCH ×2 (11:23→13:27)
[2016-11-01] MEDS: VITAMINS, MULTIPLE CAP PO SCH (12:31)
[2016-11-01 12:35] VITALS: BP 161/99; TEMP 98
--- NOTE | 2016-11-01 12:57 | PCM.DCS92 ---
- Final/Secondary Discharge Diagnosis (1) Acute respiratory failure with hypoxia Resolved J96.01 - ACUTE RESPIRATORY FAILURE WITH HYPOXIA Present on Admission: Yes Comment: has not walked at all. Is trnsferred to recliner for part of each day. May be able to wean. (2) RLL pneumonia Resolved J18.1 - LOBAR PNEUMONIA, UNSPECIFIED ORGANISM Present on Admission: Yes aspiration pneumonia unspecified J69.0 - Pneumonitis due to inhalation of food and vomit Comment: Aspiration precautions and pureed diet with thickened liquids. (3) Alzheimer's dementia without behavioral disturbance Chronic G30.9 - ALZHEIMER'S DISEASE, UNSPECIFIED; F02.80 - DEMENTIA IN OTH DISEASES CLASSD ELSWHR W/O BEHAVRL DISTURB Present on Admission: Yes late-onset G30.1 - Alzheimer's disease with late onset; F02.80 - Dementia in other diseases classified elsewhere without behavioral disturbance Comment: Needs to be ambulatory to return to [facility]. PT attempting to evaluate. (4) Dementia with psychosis Chronic F03.91 - UNSPECIFIED DEMENTIA WITH BEHAVIORAL DISTURBANCE Comment: Patient with a recent history of hallucinations in late September. Likely related to her acute illness. Will monitor closely. (5) Hyperthyroidism Chronic E05.90 - THYROTOXICOSIS, UNSP WITHOUT THYROTOXIC CRISIS OR STORM Comment: Continue methimazole as able. (6) Do not resuscitate status Chronic Z66 - DO NOT RESUSCITATE Present on Admission: Yes (7) Severe sepsis Resolved A41.9 - SEPSIS, UNSPECIFIED ORGANISM; R65.20 - SEVERE SEPSIS WITHOUT SEPTIC SHOCK Present on Admission: Yes Comment: still sleeping most of day. I feel that sepsis has resolved but she is not at baseline.She had been living at [facility]. (8) Fever Resolved R50.9 - FEVER, UNSPECIFIED other R50.81 - Fever presenting with conditions classified elsewhere Comment: Patient's fever likely due to pneumonia. Will provide antipyretics and treat underlying cause. (9) Lactic acidosis Resolved E87.2 - ACIDOSIS Present on Admission: Yes Comment: Tissue perfusion at risk will repeat lactic acid. Discharge Disposition: Longterm Facility Discharge Condition: Stable Cognitive Discharge Status: Unimpaired Fuctional Discharge Status: Fall Risk, Deconditioning, Ambulatory Dysfunction Physician Follow up/Referrals: Kervin Hassan MD [Staff Physician] - One Week New Prescriptions: Ensure [Ensure Pudding (Chocolate)] 5 oz PO 1000,1400 #90 can O2 Device: Room Air Diet at Discharge: As Tolerated Activity: No Restrictions Call Office For: Worsening Symptoms, Fever over 100.5, Pain Uncontrolled By Meds - DC Summary Notes Hospital Course Note:: Discharge summary on patient named NARINDER LEYVA admitted to [facility] on 10/26/16 by Radha Chaves MD. Date of discharge is []. 86-year-old female admitted to our facility with pneumonia suspected to be aspiration. She had received outpatient therapy and failed with Levaquin. She was admitted into the hospital started on Rocephin and azithromycin and slowly improved. She had some difficulties with hypoxemia but fortunately today she was able to keep a sat of 93% while transferring from bed to chair. At this point she has reached maximal benefit of hospitalization. She is stable for discharge to [facility]. - Physical Exam Vital Signs: Last Vital Signs Temp 98.0 F 11/01/16 12:00 Pulse 101 11/01/16 12:00 Resp 16 11/01/16 12:00 BP 161/99 11/01/16 12:00 Pulse Ox 95 11/01/16 12:00 Oxygen Pulse Oxygen Saturation 95 O2 Device Room Air Oxygen Flow Rate 1 Fraction of Inspired Oxygen ( 2 FIO2) Constitutional: No apparent distress. negative: Well nourished, Well appearing Oriented to: Person - HEENT Head: Normal (normocephalic, atraumatic.), Other (No cervical lymphadenopathy. No supraclavicular lymphadenopathy. Neck: No palpable mass, supple , trachea midline.) Eye: Normal (pupils equal, reactive to light, and round; EOMI, Sclera white) Oropharynx: Normal (Pharynx: Moist without exudate,Gums-no swelling, No oropharyngeal lesions or erythema, Mucous membranes are dry.) Nose: Congestion, Discharge - Respiratory/Cardiovascular Respiratory: Normal - CTA, Diminished Cardiovascular: Normal (RRR , Normal S1, S2. No murmurs, rubs, or gallops. PMI non-displaced. Carotids: no carotid bruits. No bradycardia or tachycardia. DP pulses 2+ bilaterally.) - GI Auscultation: Normal (normal active sounds) Palpation: Normal (Soft,non distended,nontender. No hepatosplenomegaly.) Tenderness: Non tender (No rebound or guarding) - Musculoskeletal Back: Normal (Non-Tender) Extremities: Normal (Normal tone, DP pulses 2+ bilaterally, No cyanosis or edema bilaterally, FROM bilaterally.) - Integumentary Skin: Normal (Warm dry no rashes) Lymphatics: negative: Cervical Adenopathy, Supraclavicular Adenopathy - Neurologic Memory Impaired: Short-term, Long-term Motor Function: Normal (Motor 5/5 throughout.Normal tone, Pulses 2+ No cyanosis or edema, FROM) Cranial Nerve: Normal (CN II-XII intact sensation, strength 5/5) Cerebellar: Unable to Test Mood Description: Agitated Thought: Rambling Conversation
[2016-11-01 14:25] VITALS: PULSE 110
[2016-11-01] MEDS: CEFTRIAXONE 1 GM in D5W 100 ML IV SCH (15:01)
== END 2016-11-01 15:30 | DRG 871 ==
LOC: ED 16:49 → EDINP 18:49 → PCU 21:31
PROVIDERS: ADMIT Hospitalist; ATTEND Family Medicine
PROC: 039C3ZZ Drainage of Left Radial Artery, Percutaneous Approach (ICD-10-PCS; principal; 2016-10-26)
DX: A41.9 Sepsis, unspecified organism (principal); J69.0 Pneumonitis due to inhalation of food and vomit; J96.01 Acute respiratory failure with hypoxia; G30.9 Alzheimer's disease, unspecified; E87.2 Acidosis; F02.81 Dementia in other diseases classified elsewhere, unspecified severity, with behavioral disturbance; D69.6 Thrombocytopenia, unspecified; I11.0 Hypertensive heart disease with heart failure; I50.32 Chronic diastolic (congestive) heart failure; R65.20 Severe sepsis without septic shock; F02.80 Dementia in other diseases classified elsewhere, unspecified severity, without behavioral disturbance, psychotic disturbance, mood disturbance, and anxiety; E05.90 Thyrotoxicosis, unspecified without thyrotoxic crisis or storm; Z66 Do not resuscitate; I48.91 Unspecified atrial fibrillation; I49.5 Sick sinus syndrome; E78.00 Pure hypercholesterolemia, unspecified; E11.9 Type 2 diabetes mellitus without complications; Z79.52 Long term (current) use of systemic steroids; Z79.82 Long term (current) use of aspirin; Z79.899 Other long term (current) drug therapy; Z86.73 Personal history of transient ischemic attack (TIA), and cerebral infarction without residual deficits
CPT/HCPCS: 36415; 36600; 71010; 80048; 80053; 81001; 82803; 83605; 84439; 84443; 84481; 84484; 85025; 85027; 85610; 85730; 87040; 87045; 87046; 87086; 87493; 87804; 90656; 90732; 93005; 94640; 96361; 96365; 96372; 97161; 99285; G0237; J0456; J0696; J1650; J3490; J7040; J7060; J7070; J7620